=== PATIENT | male | born 1955 | race Caucasian/White ===

== ENCOUNTER 2017-05-12 08:00 | Emergency (ER) | payer MEDICAID ==
[~2017-05-12] VITALS: Ht 167.6 cm; Wt 92.2 kg
[2017-05-12 09:39] LABS: BASOPHIL % 0.4 % (0-2); PLATELET COUNT 211 x10^3mcL (130-400); RED CELL DISTRIBUTION WIDTH 12.6 % (11.5-14.5)
[2017-05-12 09:47] LABS: CALCIUM 8.4 mg/dL (8.5-10.1); CARBON DIOXIDE 28.6 mmol/L (21-32); CHLORIDE SERUM 101 mmol/L (98-107); CREATININE SERUM 0.8 mg/dL (0.7-1.3); GFR1 > 60 mL/min; GLUCOSE SERUM 277 mg/dL (74-106); POTASSIUM SERUM 3.7 mmol/L (3.5-5.1); SODIUM SERUM 136 mmol/L (136-145)
[2017-05-12 09:52] LABS: ALBUMIN 3.4 g/dL (3.4-5.0); ALKALINE PHOSPHATASE 161 U/L (46-116); ALT/SGPT 28 U/L (16-63); AST/SGOT 17 U/L (15-37); BILIRUBIN TOTAL 0.4 mg/dL (0.20-1.00); TOTAL PROTEIN, SERUM 7.3 g/dL (6.4-8.2)
[2017-05-12] MEDS ORDERED: LISINOPRIL2.5 MG (13:05)
[2017-05-12 14:31] LABS: CHOLESTEROL/HDL RATIO 4.3; MAGNESIUM 1.9 mg/dL (1.8-2.4); PHOSPHOROUS 3.3 mg/dL (2.5-4.9)
[2017-05-12 14:42] LABS: FREE T4 1.04 ng/dL (0.76-1.46); FREE THYROXINE INDEX 3.2 ug/dL (1.4-4.5); T4(THYROXINE) 9.1 ug/dL (4.7-13.3)
[2017-05-12 14:51] LABS: T3 TOTAL 1.24 ng/mL
[2017-05-12 16:10] VITALS: BP 135/76
== END 2017-05-12 16:10 | disposition left against medical advice (07) ==
LOC: ED 08:00 → DU 13:55 → ED 13:55 → DU 16:10
PROVIDERS: Emergency Medicine Emergency Medical Services; Family Medicine
DX: R07.89 Other chest pain (principal); I10 Essential (primary) hypertension; E11.9 Type 2 diabetes mellitus without complications
CPT/HCPCS: 36415; 83880; 84439; Q0092

== ENCOUNTER 2017-05-14 10:02 | Inpatient (IN) | payer MEDICAID ==
[~2017-05-14] VITALS: Ht 170.2 cm; Wt 91.0 kg
[~2017-05-14 10:02] MED LIST: LISINOPRIL2.5 MG
--- NOTE | 2017-05-14 10:24 | NUR ---
Patient presents to the emergency department with a chief complaint of chest pain since 7 AM this morning. Patient was seen here at [facility] ED on Wednesday of this week for the same complaint. Patient reports mild shortness of breath with chest pain and nausea as well. Patient denies vomiting, denies of abd pain, denies headache. Patient rates pain nine out of 10 and pressure in quality. Patient changed into gown, connected to cardio respiratory monitoring, Dr. Stanton at bedside for MSE.
[2017-05-14 10:42] LABS: BASOPHIL % 0.5 % (0-2); PLATELET COUNT 227 x10^3mcL (130-400); RED CELL DISTRIBUTION WIDTH 13.1 % (11.5-14.5)
[2017-05-14 10:49] LABS: CALCIUM 8.4 mg/dL (8.5-10.1); CARBON DIOXIDE 28.5 mmol/L (21-32); CHLORIDE SERUM 101 mmol/L (98-107); CREATININE SERUM 0.8 mg/dL (0.7-1.3); GFR1 > 60 mL/min; GLUCOSE SERUM 230 mg/dL (74-106); POTASSIUM SERUM 3.9 mmol/L (3.5-5.1); SODIUM SERUM 136 mmol/L (136-145)
[2017-05-14 10:54] LABS: ALBUMIN 3.6 g/dL (3.4-5.0); ALKALINE PHOSPHATASE 139 U/L (46-116); ALT/SGPT 31 U/L (16-63); AST/SGOT 20 U/L (15-37); BILIRUBIN TOTAL 0.76 mg/dL (0.20-1.00); TOTAL PROTEIN, SERUM 7.6 g/dL (6.4-8.2)
--- NOTE | 2017-05-14 11:15 | NUR ---
PT RESTING IN BED WITH EYES CLOSED, EASY TO WAKE. E/U RESP, PT CONNECTED TO MONITOR. AWAITING LAB RESULTS AND FURTHER ORDERS AT THIS TIME.
[2017-05-14] MEDS ORDERED: METFORMIN HCL500 MG (12:06)
[2017-05-14] MEDS ORDERED: LIPITOR40 MG (12:07)
--- NOTE | 2017-05-14 12:14 | NUR ---
REPORT CALLED TO JADEN MCMULLEN TO ASSUME CARE OF PT POST TRANSFER TO TELE UNIT.
[2017-05-14 12:18] LABS: T3 TOTAL 1.12 ng/mL
[2017-05-14 12:23] LABS: CHOLESTEROL/HDL RATIO 4.2; MAGNESIUM 1.9 mg/dL (1.8-2.4); PHOSPHOROUS 2.1 mg/dL (2.5-4.9)
[2017-05-14 12:31] LABS: FREE T4 1.13 ng/dL (0.76-1.46); FREE THYROXINE INDEX 3.2 ug/dL (1.4-4.5); T4(THYROXINE) 9.8 ug/dL (4.7-13.3)
--- NOTE | 2017-05-14 12:45 | NUR ---
RESUMED CARE FOR Pt. FROM ED, Pt. AAOX4 DENIES MORROW/DIZZINESS. RESPIRATIONS EVEN AND UNLABORED. DENIES CHEST PAIN/PRESSURE AT THIS TIME. PLACED Pt. ON TELE 13 HR 55 SINUS BRADYCARDIA. IV FLUSHES WELL TO RIGHT HAND RESUMED IVF PER EMAR, BED LOW/LOCKED. ORIENTED WITH USE OF CALL LIGHT/BED CONTROLS AND VERBALIZED UNDERSTANDING. CALL LIGHT IN REACH.
--- NOTE | 2017-05-14 13:03 | NUR ---
Pt. BP 162/69 HR 55 HELD METOPROLOL DUE TO HR DR. LOCKHART MADE AWARE AWAITING ORDERS.
--- NOTE | 2017-05-14 13:12 | NUR ---
US TECH AT BEDSIDE.
--- NOTE | 2017-05-14 13:30 | NUR ---
Pt. STARTED ON HEPARIN DRIP LOADING DOSE 5,500 U AND AND HEPARIN DRIP RUNNING AT 1,100 U/HR VERIFIED WITH JASPER MCMULLEN.
[2017-05-14 13:51] VITALS: BP 162/69
[2017-05-14 14:27] VITALS: Ht 170.2 cm; Wt 91.0 kg
--- NOTE | 2017-05-14 14:58 | NUR ---
HEPARIN DRIP STOPPED PER DR. EDMONDS, DR. EDMONDS AT BEDSIDE WITH DR. STERLING EMBEDDED NURSE.
--- NOTE | 2017-05-14 15:00 | NUR ---
DR. EDMONDS MADE INSET CUTTER AWARE THAT PT WILL BE SCHEDULED FOR LEFT HEART CATH. PT SEEN IN ROOM. FAMILY AT BEDSIDE. WITH USE OF EARLY CHILDHOOD COORDINATOR. DR. EDMONDS OBTAINED CONSENT FOR PROCEDURE, MODERATE SEDATION, AND CONTRAST. PER DR. EDMONDS, NO NEED TO HOLD METFORMIN FOLLOWING PROCEDURE. PT ABLE TO PROVIDE INFORMED CONSENT. HEPARIN DRIP TURNED OFF BY PRIMARY RN JADEN. PT TO BE BROUGHT DOWN TO INSET CUTTER FOR PROCEDURE.
--- NOTE | 2017-05-14 15:19 | NUR ---
PEDRO WIPES DONE.
[2017-05-14 15:20] VITALS: BP 125/74
--- NOTE | 2017-05-14 15:31 | NUR ---
Pt. LEFT FOR CARDIAC CATH NO S/S DISTRESS AT TIME OF TRANSFER.
[2017-05-14 15:34] LABS: microscopic required? NO
[2017-05-14 15:58] LABS: AMPHETAMINE QUAL UR NONE DETECTED (NEG <=1000)
[2017-05-14 16:03] LABS: UA SPECIFIC GRAVITY 1.015 (1.005-1.035); urine erythrocyte NEGATIVE (NEGATIVE)
--- NOTE | 2017-05-14 17:00 | NUR ---
RECEIVED REPORT FROM [facility] KEMI STANLEY AND [facility] SETTER KEMI COOLEY. ALL QUESTIONS AND CONCERNS ADDRESSED AT THIS TIME.
--- NOTE | 2017-05-14 17:20 | NUR ---
PT BEING TRANSFERRED TO ICU AT THIS TIME. ALL BELONGINGS COLLECTED FROM 2N AND TRANSPORTED TO ICU.
[2017-05-14] MEDS ORDERED: HEP100I IV (17:22)
[2017-05-14] MEDS ORDERED: HEP5I IV (17:22)
[2017-05-14] MEDS ORDERED: NIT0.4 SL (17:22)
[2017-05-14] MEDS ORDERED: BAY PO (17:22)
[2017-05-14] MEDS ORDERED: APAP/HYDROCODON1 T13 PO (17:22)
[2017-05-14] MEDS ORDERED: ZES10 PO (17:22)
[2017-05-14] MEDS ORDERED: KETOROLAC TR15 MG/M1 IV (17:22)
[2017-05-14] MEDS ORDERED: LIPI20 PO (17:22)
[2017-05-14] MEDS ORDERED: TOP50 PO (17:22)
[2017-05-14] MEDS ORDERED: BG FS (17:23)
[2017-05-14] MEDS ORDERED: NPHOS PO (17:23)
[2017-05-14] MEDS ORDERED: ZOFI IV (17:23)
[2017-05-14] MEDS ORDERED: COL100 PO (17:23)
[2017-05-14] MEDS ORDERED: GLU850 PO (17:23)
[2017-05-14] MEDS ORDERED: HUMULIN R100 U/1 M1 SC (17:23)
[2017-05-14] MEDS ORDERED: TYL325 PO (17:23)
[2017-05-14] MEDS ORDERED: OSCD PO (17:23)
[2017-05-14] MEDS ORDERED: PROTONIX40 MG/Pac1 PO (17:23)
[2017-05-14] MEDS ORDERED: DEXPF IV (17:23)
--- NOTE | 2017-05-14 17:30 | NUR ---
RECIEVED PATIENT FROM FIRST AID TRAINER VIA BED ATTACHED TO DRUM STOCK CLERK ACCOPANIED BY NURSE. PATIENT IS A/O X4. ABLE TO FOLLOW COMMANDS AND MAKE NEEDS KNOWN. PATIENT ON ROOM AIR. RESPIRATIOSN ARE EQUAL AND SYMMETRICAL. NO SIGNS OF RESP DISTRESS. VS: TEMP 98.7 ORAL, HR 60 BPM, RR 18, 02 SAT 97% RA, NIBP 118/65 AND PATIENT C/O NO PAIN AT THIS TIME. DURING FIRST AID TRAINER DR. EDMONDS FOUND 70% BLOCKAGE IN THE LAD. PATIENT TO BE ON HEPARIN DRIP AT 1000 UNITS/HR PER DR. EDMONDS. IV TO RIGHT HAND IN PLACE AND INFUSING WELL WITH NO SIGNS OF INFILTRATION NOTED. TR BAND NOTED TO RIGHT WRIST INFLATED WITH 15 ML OF AIR. BILATERAL RADIAL PULSES PALPABLE AND CAP REFILL <3 SEC. BED TO LOWEST POSITION, SIDE RAILS UP X2, CALL LIGHT WITHIN REACH. WILL CONTINUE TO MONITOR.
--- NOTE | 2017-05-14 19:10 | NUR ---
RECEIVED REPORT FROM KEMI ARAYA, WILL ENDORSE CARE
--- NOTE | 2017-05-14 19:23 | NUR ---
7.5 ML REMOVED FROM TRBAND PER REQUEST. NO BLEEDING NOTED. WILL REMOVE REMAINDER OF AIR IN 20 MINUTES.
[2017-05-14 19:49] VITALS: BP 134/89
--- NOTE | 2017-05-14 19:58 | NUR ---
REPORT GIVEN TO ACLS JAMAL TO [facility], ALL QUESTIONS ADDRESSED, WILL ENDORSE CARE
--- NOTE | 2017-05-14 20:07 | NUR ---
REPORTB GIVEN TO RN KAJAL AT [facility], ALL QUESTIONS ADDRESSED, WILL ENDORSE CARE
--- NOTE | 2017-05-15 08:03 | NUR ---
ECHOCARDIOGRAM NOT DONE PATIENT WAS DISCHARGED.
== END 2017-05-14 20:00 | disposition short-term general hospital (02) | DRG 191 ==
LOC: ED 10:02 → DU 11:41 → IC 17:27
PROVIDERS: Emergency Medicine; Internal Medicine Interventional Cardiology; ADMIT Family Medicine Sports Medicine
PROC: B211YZZ Fluoroscopy of Multiple Coronary Arteries using Other Contrast (ICD-10-PCS; 2017-05-14)
PROC: B215YZZ Fluoroscopy of Left Heart using Other Contrast (ICD-10-PCS; 2017-05-14)
PROC: 4A023N7 Measurement of Cardiac Sampling and Pressure, Left Heart, Percutaneous Approach (ICD-10-PCS; principal; 2017-05-14 15:30)
DX: I25.118 Atherosclerotic heart disease of native coronary artery with other forms of angina pectoris (principal); D68.69 Other thrombophilia; E11.65 Type 2 diabetes mellitus with hyperglycemia; E83.51 Hypocalcemia; E83.39 Other disorders of phosphorus metabolism; I10 Essential (primary) hypertension; E78.5 Hyperlipidemia, unspecified; E66.9 Obesity, unspecified; Z68.31 Body mass index [BMI] 31.0-31.9, adult; Z91.14 Patient's other noncompliance with medication regimen
CPT/HCPCS: CLHCL; 83880; 84439; C1769; C1887; C1894; J0780; J1644; J1885; J2001; J2250; J2405; J3010; J3490; J7030; J7040; Q0092; Q9967

== ENCOUNTER → 2017-05-25 | Outpatient (CLI) | payer MEDICAID ==
[~2017-05-25] MED LIST changes: +APAP/HYDROCODON1 T13 PO; +BAY PO; +BG FS; +COL100 PO; +DEXPF IV; +GLU850 PO; +HEP100I IV; +HEP5I IV; +HUMULIN R100 U/1 M1 SC; +KETOROLAC TR15 MG/M1 IV; +LIPI20 PO; +LIPITOR40 MG; +METFORMIN HCL500 MG; +NIT0.4 SL; +NPHOS PO; +OSCD PO; +PROTONIX40 MG/Pac1 PO; +TOP50 PO; +TYL325 PO; +ZES10 PO; +ZOFI IV
[2017-05-25 12:35] LABS: BASOPHIL % 0.7 % (0-2); RED CELL DISTRIBUTION WIDTH 13.7 % (11.5-14.5)
[2017-05-25 12:37] LABS: PLATELET COUNT 467 x10^3mcL (130-400)
[2017-05-25 12:48] LABS: CALCIUM 8.8 mg/dL (8.5-10.1); CARBON DIOXIDE 31.6 mmol/L (21-32); CHLORIDE SERUM 101 mmol/L (98-107); CREATININE SERUM 0.8 mg/dL (0.7-1.3); GFR1 > 60 mL/min; GLUCOSE SERUM 132 mg/dL (74-106); POTASSIUM SERUM 4.1 mmol/L (3.5-5.1); SODIUM SERUM 139 mmol/L (136-145)
== END | disposition home or self-care (01) ==
LOC: RD 10:58
DX: D64.9 Anemia, unspecified (principal); R73.9 Hyperglycemia, unspecified; E87.6 Hypokalemia